=== PATIENT | female | born 1975 | race Caucasian/White ===

== ENCOUNTER 2020-02-16 18:01 | Emergency (ER) | payer BC ==
[~2020-02-16] VITALS: Ht 157.5 cm; Wt 90.9 kg
[2020-02-16] MEDS ORDERED: LEVO75TA4 PO (18:11)
[2020-02-16] MEDS ORDERED: AMLO2.5T3 PO (18:11)
[2020-02-16] MEDS ORDERED: MORPHINE 10 MG/ML 1ML VIAL (J2270) IM ONE (18:45)
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
[2020-02-16] MEDS ORDERED: LIDOCAINE W/EPINEPHRINE 1% 20ML VIAL SC ONE (20:15)
[2020-02-16] MEDS ORDERED: ceFAZolin SOD 1 GM in D5W MINI-BAG PLUS 50 ML IV ONE (20:15)
[2020-02-16] MEDS ORDERED: KEFL500C17 PO (20:50)
[2020-02-16] MEDS ORDERED: BOOSTRIX/ADACEL VACCINE (DIPHTH/PERTUSS/ACELL/TETANUS) 0.5ML SYR IM ONE (21:15)
[2020-02-16 21:18] VITALS: BP 136/76
== END 2020-02-16 21:22 | disposition home or self-care (01) ==
LOC: M ED 18:01
DX: S81.831A Puncture wound without foreign body, right lower leg, initial encounter (principal); S80.851A Superficial foreign body, right lower leg, initial encounter; W45.8XXA Other foreign body or object entering through skin, initial encounter; Y92.828 Other wilderness area as the place of occurrence of the external cause; Y93.89 Activity, other specified; Z79.899 Other long term (current) drug therapy
CPT/HCPCS: 10120; 73590; 90471; 90715; 96365; 99284; J0690; J2270